=== PATIENT | female | born 1960 | race Caucasian/White ===

== ENCOUNTER 2020-01-18 16:44 | Observation (INO) ==
[2020-01-18] MEDS ORDERED: 0.9 % Sodium Chloride 1,000 ML IVC ONE (17:08)
[2020-01-18] MEDS ORDERED: Naloxone 0.4 MG/ML INJ IVP PRN (18:11)
[2020-01-18] MEDS ORDERED: Mag Hydrox/Al Hydrox/Simeth 30 ML UDC PO PRN (18:11)
[2020-01-18] MEDS ORDERED: Acetaminophen 325 MG TABLET PO PRN (18:11)
[2020-01-18] MEDS ORDERED: Dextrose Gel 15 GM/37.5 ML TUBE PO PRN ×2 (18:16)
[2020-01-18] MEDS ORDERED: D5% in Water 1,000 ML IVC PRN (18:16)
[2020-01-18] MEDS ORDERED: *HR* Dextrose 50 % in Water (Vial) 50 ML VIAL IVP PRN (18:16)
[2020-01-18] MEDS ORDERED: tiZANidine 4 MG TABLET PO PRN (18:21)
[2020-01-18] MEDS: 0.9 % Sodium Chloride 1,000 ML IVC SCH (18:40)
[2020-01-18] MEDS: Vancomycin Oral Soln 125 MG/2.5 ML UDC PO SCH (21:41)
[2020-01-18] MEDS: Gabapentin 300 MG CAPSULE PO SCH (21:43)
[2020-01-18] MEDS: Lactobacillus 1 EACH CAP.SPRINK PO SCH (21:43)
[2020-01-18] MEDS: Insulin LISPRO 300 UNITS/3 ML VIAL SQ SCH (21:45)
[2020-01-18 22:07] LABS: Basophils % 0.6 %; Eosinophils # 0.2 K/mcL (0.0-0.6); Eosinophils % 4.3 %; Hematocrit 34.5 % (35.3-44.9); Hemoglobin 11.7 g/dL (11.5-15.4); Immature Granulocytes % 0.4 % (0-4); Lymphocytes # 1.6 K/mcL (0.6-4.6); Mean Corpuscular HGB Conc 33.9 g/dL (31.6-35.5); Mean Corpuscular Hemoglobin 32.1 pg (28.0-33.3); Mean Corpuscular Volume 94.5 fL (83.0-100.0); Mean Platelet Volume 9.9 fL (9.4-12.4); Monocytes # 0.4 K/mcL (0.0-1.3); Monocytes % 7.8 %; Neutrophils # 3.1 K/mcL (1.6-8.9); Platelet Count 113 K/mcL (140-400); Red Blood Count 3.65 M/mcL (3.82-4.97); Red Cell Distribution Width 12.9 % (11.5-14.5); Segmented Neutrophils % 56.9 %; White Blood Count 5.4 K/mcL (4.3-11.1)
[2020-01-18 22:24] LABS: Alanine Aminotransferase 23 Units/L (7-52); Albumin 3.7 g/dL (3.5-5.7); Albumin/Globulin Ratio 1.5 (1.1-2.2); Alkaline Phosphatase 59 Units/L (34-104); Aspartate Amino Transferase 18 Units/L (13-39); BUN/Creatinine Ratio 12 (6-26); Bilirubin,Total 0.5 mg/dL (0.3-1.0); Blood Urea Nitrogen 9 mg/dL (6-20); Calcium 8.6 mg/dL (8.6-10.3); Carbon Dioxide 26 mEq/L (23-29); Chloride 104 mEq/L (98-107); Globulin 2.5 g/dL (2.4-3.5); Glucose 129 mg/dL (70-105); Magnesium 1.8 mg/dL (1.6-2.6); Osmolality,Calculated 288 (280-300); Sodium 139 mEq/L (136-145); Total Protein 6.2 g/dL (6.4-8.9); eGFR For African Americans > 60 (> 60); eGFR For Non-African Americans > 60 (> 60)
[2020-01-18] MEDS: Ondansetron 4 MG/2 ML VIAL IVP PRN (23:20)
[2020-01-19 02:33] LABS: Bilirubin,Urine Negative (Negative); Blood,Urine Trace-lysed (Negative); Clarity,Urine Clear (Clear); Color,Urine Yellow (Yellow); Glucose,Urine (UA) Normal (Normal); Ketones,Urine Negative (Negative); Leukocyte Esterase,Urine Trace (Negative); Nitrite,Urine Negative (Negative); Protein,Urine Negative (Neg-Trace); Urobilinogen,Urine Normal (Normal)
[2020-01-19] MEDS: 0.9 % Sodium Chloride 1,000 ML IVC SCH ×3 (02:35→18:05)
[2020-01-19 03:06] LABS: WBC,Urine 15-30 per hpf (0-3)
[2020-01-19 03:07] LABS: Mucus,Urine Few per lpf (None-Few); Squamous Epithelial Cell,Urine Few per hpf (None-Few)
[2020-01-19 07:16] LABS: Basophils % 0.5 %; Eosinophils # 0.2 K/mcL (0.0-0.6); Eosinophils % 4.8 %; Hematocrit 33.4 % (35.3-44.9); Hemoglobin 11.3 g/dL (11.5-15.4); Lymphocytes # 1.5 K/mcL (0.6-4.6); Lymphocytes % 34.7 %; Mean Corpuscular HGB Conc 33.8 g/dL (31.6-35.5); Mean Corpuscular Hemoglobin 32.3 pg (28.0-33.3); Mean Corpuscular Volume 95.4 fL (83.0-100.0); Mean Platelet Volume 10.2 fL (9.4-12.4); Monocytes # 0.3 K/mcL (0.0-1.3); Monocytes % 7.8 %; Neutrophils # 2.3 K/mcL (1.6-8.9); Segmented Neutrophils % 52.2 %; White Blood Count 4.4 K/mcL (4.3-11.1)
[2020-01-19 07:29] LABS: BUN/Creatinine Ratio 11 (6-26); Blood Urea Nitrogen 8 mg/dL (6-20); Calcium 8.3 mg/dL (8.6-10.3); Carbon Dioxide 28 mEq/L (23-29); Chloride 107 mEq/L (98-107); Glucose 117 mg/dL (70-105); Osmolality,Calculated 293 (280-300); Potassium 4.1 mEq/L (3.5-5.1); Sodium 142 mEq/L (136-145); eGFR For African Americans > 60 (> 60); eGFR For Non-African Americans > 60 (> 60)
[2020-01-19 07:46] LABS: Platelet Count 96 K/mcL (140-400)
[2020-01-19] MEDS: Insulin LISPRO 300 UNITS/3 ML VIAL SQ SCH ×4 (08:22→21:01)
[2020-01-19] MEDS: Lactobacillus 1 EACH CAP.SPRINK PO SCH ×2 (08:44→21:00)
[2020-01-19] MEDS: Vancomycin Oral Soln 125 MG/2.5 ML UDC PO SCH ×4 (10:35→21:00)
[2020-01-19] MEDS: Ondansetron 4 MG/2 ML VIAL IVP PRN (18:05)
[2020-01-19] MEDS: Gabapentin 300 MG CAPSULE PO SCH (21:00)
[2020-01-20] MEDS: 0.9 % Sodium Chloride 1,000 ML IVC SCH (02:14)
[2020-01-20 06:31] LABS: Basophils % 0.7 %; Eosinophils # 0.2 K/mcL (0.0-0.6); Eosinophils % 5.3 %; Hematocrit 31.1 % (35.3-44.9); Hemoglobin 10.4 g/dL (11.5-15.4); Immature Granulocytes % 0.3 % (0-4); Lymphocytes # 1.3 K/mcL (0.6-4.6); Lymphocytes % 42.7 %; Mean Corpuscular HGB Conc 33.4 g/dL (31.6-35.5); Mean Corpuscular Hemoglobin 32.1 pg (28.0-33.3); Mean Platelet Volume 10.4 fL (9.4-12.4); Monocytes # 0.2 K/mcL (0.0-1.3); Monocytes % 7.7 %; Neutrophils # 1.3 K/mcL (1.6-8.9); Red Blood Count 3.24 M/mcL (3.82-4.97); Red Cell Distribution Width 12.9 % (11.5-14.5); Segmented Neutrophils % 43.3 %
[2020-01-20 06:43] LABS: Platelet Count 86 K/mcL (140-400)
[2020-01-20 06:51] LABS: BUN/Creatinine Ratio 11 (6-26); Blood Urea Nitrogen 8 mg/dL (6-20); Calcium 8.1 mg/dL (8.6-10.3); Carbon Dioxide 28 mEq/L (23-29); Chloride 108 mEq/L (98-107); Glucose 157 mg/dL (70-105); Osmolality,Calculated 296 (280-300); Potassium 4.1 mEq/L (3.5-5.1); Sodium 142 mEq/L (136-145); eGFR For African Americans > 60 (> 60); eGFR For Non-African Americans > 60 (> 60)
[2020-01-20 07:00] VITALS: BP 126/78
[2020-01-20] MEDS: Insulin LISPRO 300 UNITS/3 ML VIAL SQ SCH (08:41)
[2020-01-20] MEDS: Lactobacillus 1 EACH CAP.SPRINK PO SCH (08:42)
[2020-01-20] MEDS: Vancomycin Oral Soln 125 MG/2.5 ML UDC PO SCH (08:43)
== END 2020-01-20 12:30 | disposition home or self-care (01) ==
LOC: EMEROOPIK 16:44 → INPPIK 16:44
PROVIDERS: ADMIT Family Medicine; ATTEND Family Medicine